=== PATIENT | female | born 1950 | race Caucasian/White ===

== ENCOUNTER → 2021-05-11 10:35 | Outpatient (CLI) | payer MEDICARE, SELFPAY ==
--- NOTE | ~2021-05-11 | DEXA_ITS ---
Bone Density Report Name: Shelby Garza Age: 70 Sex: Female Ethnicity: White Date of : 1950 Indication: postmenopausal; screening for osteoporosis; parental hip fracture; height loss; prior fracture; Referring Provider: ARIELLA, ASTHYA Study: Bone densitometry was performed. Exam Date: May 11, 2021 Accession number: [id number] Bone Density: Region BMD T-score Z-score Classification AP Spine (L2, L3, L4) 1.067 -0.1 2.2 Normal Femoral Neck (Left) 0.650 -1.8 0.1 Osteopenia Total Hip (Left) 0.936 0.0 1.5 Normal Femoral Neck (Right) 0.607 -2.2 -0.3 Osteopenia Total Hip (Right) 0.833 -0.9 0.7 Normal Total Hip Mean 0.885 -0.5 1.1 Normal World Health Organization criteria for BMD impression classify patients as: Normal (T-score at or above -1.0), Osteopenia (T-score between -1.0 and -2.5), or Osteoporosis (T-score at or below -2.5). 10-year Fracture Risk: FRAX not reported because: Prior hip or vertebral fracture Previous Exams: Region Exam Age BMD T-score BMD Change BMD Change Date g/cm2 vs Baseline vs Previous AP Spine(L2, L3, L4) 05/11/2021 70 1.067 -0.1 0.116 0.011 11/03/2018 68 1.057 -0.2 0.105 0.060* 02/28/2016 65 0.996 -0.8 0.045 -0.023 11/06/2012 62 1.019 -0.5 0.068 0.068 03/23/2003 52 0.951 -1.2 Total Hip(Left) 05/11/2021 70 0.936 0.0 0.041 -0.039* 11/03/2018 68 0.975 0.3 0.080 0.000 02/28/2016 65 0.975 0.3 0.080 -0.016 11/06/2012 62 0.992 0.4 0.096 0.096 03/23/2003 52 0.895 -0.4 Total Hip(Right) 05/11/2021 70 0.833 -0.9 -0.017 -0.057* 11/03/2018 68 0.890 -0.4 0.040 -0.059* 02/28/2016 65 0.949 0.1 0.099 0.013 11/06/2012 62 0.935 -0.1 0.086 0.086 03/23/2003 52 0.850 -0.8 *Denotes significance at 95% confidence level, LSC for AP Spine = 0.022 g/cm2, LSC for Total Hip = 0.027 g/cm2 Clinical Information Provided by Patient: Have had a previous hip or vertebral fracture Has had a low trauma fracture Parent has had a hip fracture Has used the following medications: Vitamin D Patient maximum height was 67.0 Menopause Age: 44 No regular weight bearing exercise Does not regularly consume dairy products Drinks caffeinated beverages Onset of menses at age 11 Number of children 3
--- NOTE | ~2021-05-11 | MM_ITS ---
EXAMINATION: MM screening [facility] BI w steve HISTORY: Screening mammogram TECHNIQUE: Craniocaudal and mediolateral oblique 3-D tomosynthesis images were obtained and synthetic 2-D images were generated. CAD analysis was submitted and interpreted. COMPARISON: 11/03/2018, 09/15/2017, 02/28/2016 bilateral digital screening mammogram examinations BREAST PARENCHYMAL COMPOSITION: The breasts are almost entirely fatty. FINDINGS: Stable 8 mm circumscribed benign-appearing lymph node in the upper outer right breast, not significantly changed since 02/28/2016. Stable very small circumscribed benign probable left axillary tail lymph node. There is no evidence of suspicious mass, calcification, or architectural distortion to suggest malignancy in either breast. There has been no suspicious interval change. IMPRESSION: 1. No mammographic evidence of malignancy. 2. Recommend routine screening mammography in one year. BI-RADS Category 2: Benign finding(s). Reviewed, dictated and finalized at location A.
== END ==
PROVIDERS: Visit Provider Nurse Practitioner
DX: Z12.31 Encounter for screening mammogram for malignant neoplasm of breast (principal); Z78.0 Asymptomatic menopausal state; M85.852 Other specified disorders of bone density and structure, left thigh; M85.851 Other specified disorders of bone density and structure, right thigh
CPT/HCPCS: 77063; 77067; 77080

== ENCOUNTER → 2022-07-26 09:47 | Outpatient (CLI) | payer MEDICARE, SELFPAY ==
--- NOTE | ~2022-07-26 | MM_ITS ---
EXAMINATION: MM screening [facility] BI w steve HISTORY: Screening mammogram TECHNIQUE: Craniocaudal and mediolateral oblique 3-D tomosynthesis images were obtained and synthetic 2-D images were generated. CAD analysis was submitted and interpreted. COMPARISON: 09/11/2020, 11/03/2018, 09/15/2017 BREAST PARENCHYMAL COMPOSITION: The breasts are almost entirely fatty. FINDINGS: Again noted is a stable intramammary lymph node in the upper outer quadrant of the right br east. No suspicious mass, calcification, or architectural distortion are identified in either breast to suggest malignancy. There has been no suspicious interval change. IMPRESSION: 1. No mammographic evidence of malignancy. 2. Recommend routine screening mammography in one year. BI-RADS Category 2: Benign finding(s). Reviewed, dictated and finalized at location A. NESS MGR
== END ==
PROVIDERS: PCP Family Medicine; Visit Provider Nurse Practitioner
DX: Z12.31 Encounter for screening mammogram for malignant neoplasm of breast (principal)
CPT/HCPCS: 77063; 77067

== ENCOUNTER → 2022-09-20 10:00 | Outpatient (CLI) | payer MEDICARE, SELFPAY ==
--- NOTE | ~2022-09-20 | US_ITS ---
Pelvic ultrasound. Clinical History: Incomplete uterovaginal prolapse Technique: Realtime transabdominal and transvaginal scanning of the pelvis was performed. Color flow Doppler and Doppler spectral analysis were performed. Findings: The uterus is anteverted. The endometrial stripe has a thickness of 25 mm. No focal mass i s identified. Neither ovary visualized. No other adnexal mass seen. There is no evidence of free fluid in the cul de sac. Impression: Significantly abnormally thickened endometrium given patient age. Endometrial neoplasm is considerati on. Further evaluation for endometrial carcinoma or endometrial hyperplasia is recommended. Reviewed, dictated and finalized at location . SSIONS COUNSELOR Impression: Significantly abnormally thickened endometrium given patient age. Endometrial n eoplasm is consideration. Further evaluation for endometrial carcinoma or endom etrial hyperplasia is recommended.
== END ==
PROVIDERS: PCP Family Medicine; Visit Provider Obstetrics & Gynecology Gynecology
DX: N81.2 Incomplete uterovaginal prolapse (principal)
CPT/HCPCS: 76830

== ENCOUNTER 2022-10-14 01:16 | Day surgery (SDC) | payer MEDICARE, SELFPAY ==
--- NOTE | 2022-10-04 13:45 | PC.NURSE ---
Report to the Outpatient Waiting Room, entrance under the green pavilion located off [facility], at time __0615 on date __10/14/22 . Planned Procedure Time: __814 . Time changes happen often and if your time is changed the preop area will call you the afternoon before. - You and your visitor will be asked to self-screen and do not enter if you have any COVID symptoms. - Only one visitor is requested with a max of two and NO children visitors are allowed at this time. - The patient visitor may be requested to leave or wait in car when not with patient due to distancing restrictions. - A mask is optional within the hospital at this time. Patients may have clear liquids (water, carbonated beverages, clear teas, apple juice) until 3 hours prior to surgery with a maximum of 20 ounces. - No food from midnight until time of surgery - Infants may have breast milk until 4 hours before surgery, infant formula 6 hours prior to surgery. - Children will be allowed to drink immediately following surgery. If applicable, please bring a bottle or sippy cup to assist with drinking. Juice, water, soda, and popsicles are readily available. For infants on formula, please bring formula the day of surgery. Pacifiers are allowed. Take the following medications with a SIP of water the morning of surgery: ____NONE DO NOT STOP ANY OF YOUR OTHER PRESCRIPTION MEDICATIONS PRIOR TO SURGERY ?EXCEPT THE FOLLOWING Medications to discontinue per physician __ALL VITAMINS/SUPPLEMENTS 3 DAYS PRE OP. LAST DOSE 10/10/22 Please no make-up, nail georgian, hairspray, perfume, deodorant, or body powder the day of surgery. No jewelry (including any body piercings) or valuables the day of surgery, leave them at home. Please take a shower or bath the night before, or the morning of, surgery with an antibacterial soap. Wear comfortable, loose fitting clothing. Children are encouraged to wear pajamas. - Jewelry must be removed prior to entering the operating room. Rings and piercings that are not removed may be cut off. - The hospital will not accept responsibility for valuables. - Please leave all valuables, including medications, at home the day of surgery. If you are going home after surgery, a licensed dolly driver must drive you home. - NO public transportation without another adult if you receive anesthesia. - We recommend that an adult stay with you for 24 hours following discharge. - We also recommend that you do not drive, make important decision, drink alcoholic beverages, or take any drugs that were not prescribed by your health care provider for at least 24 hours after your discharge time. For Pediatric surgeries, we recommend two adults accompany the child home. Follow any additional instructions given to you from your surgeon. If you or anyone in your household have experienced Covid symptoms in the past week, please notify your surgeon or the nurse liaison at the phone number below for possible testing. Telephone instructions given to ___PATIENT and asked if any additional questions and then verbalized understanding. Patient advised to call surgeon office or pre surgery nurse liaison [phone] if any additional questions.
[2022-10-04 13:50] VITALS: BMI 31.5
[2022-10-14 06:34] VITALS: BP 151/66; PULSE 62; RESP 16; TEMP 36.8; O2SAT 97
[2022-10-14] MEDS: ACETAMINOPHEN 500 MG TABLET 1000 MG PO (07:17)
--- NOTE | 2022-10-14 07:17 | WPDHPUPDATE1 ---
History and Physical Update Update Date/Time: 10/14/22 07:17 History and Physical has been reviewed, including an updated exam of the patient. There are NO changes in the patient's condition. Risks, benefits, and alternatives have been discussed and questions answered. Patient agrees to proceed with procedure.
--- NOTE | 2022-10-14 07:18 | P.HP_ITS ---
History of Present Illness History of Present Illness Consent: Risks, benefits, and alternatives have been discussed and questions answered. Patient agrees to proceed with procedure. Chief complaint: Thickened Endometrial Lining Narrative: Shelby Garza is a 72 year old female with pelvic ultrasound showing an endometrial thickening of 25mm. It was recommended to workup with D&C hysteroscopy. Risks of infection, bleeding, perforation, and possible pathology are reviewed. Patient voices understanding and agrees to proceed. Review of Systems Review of Systems: not repeated day of surgery; patient states no changes in status PMFSH Past Medical History Medical History (Updated 10/14/22 @ 07:20 by Brenda Marrero MD) (normal spontaneous vaginal delivery) x3 Surgical History Surgical History (Updated 10/14/22 @ 07:19 by Brenda Marrero MD) History of tonsillectomy Social History Social History Smoking status: Never smoker Living arrangements: alone Spiritual care concerns: No Meds Home Medications and Allergies Home Medications Medication Instructions Recorded Confirmed Type ascorbic acid (vitamin C) 1,000 mg 1 g PO DAILY 10/04/22 10/04/22 History capsule cholecalciferol (vitamin D3) 125 125 mcg PO DAILY 10/04/22 10/04/22 History mcg (5,000 unit) tablet omega-3 fatty acids 1,000 mg PO DAILY 10/04/22 10/04/22 History turmeric 400 mg capsule 400 mg PO DAILY 10/04/22 10/04/22 History vitamin B complex 1 cap PO DAILY 10/04/22 10/04/22 History zinc 50 mg capsule 50 mg PO DAILY 10/04/22 10/04/22 History Allergies Allergy/AdvReac Type Severity Reaction Status Date / Time No Known Allergies Allergy Verified 10/14/22 07:03 Exam Const: General: healthy appearing and alert Orientation/consciousness: patient oriented x3 Resp: Effort & Inspection: normal respiratory effort GI: GI Palp: Yes Soft to palpation, No Tenderness to palpation present (GI) and No Palpable mass present : External Female Exam: normal external appearance Speculum Exam - Vagina: normal appearance of the vagina and normal vaginal discharge Speculum Exam - Cervix: normal appearance of the cervix and Other cervical findings present ( cervix at introitus at rest) Bimanual exam- vagina & uterus: uterine size normal, consistency normal and other ( third-degree cystocele and rectocele) Bimanual Exam- Adnexa, other: normal adnexae and No adnexal tenderness Neuro: General: patient oriented x3 Assessment and Plan Assessment and plan (1) Thickened endometrium: Code(s): R93.89 - Abnormal findings on diagnostic imaging of other specified body s tructures Status: Acute Assessment and Plan: plan to proceed with D&C hysteroscopy
[2022-10-14] MEDS: LACTATED RINGERS 1,000 ML 30 ML IV CONT (07:22)
--- NOTE | 2022-10-14 07:53 | WPDANESEPPF ---
Anes - Initial Pre Proc Eval Procedure: Operation Date: 10/14/22 08:15 Proposed Procedures p Hysteroscopy, Dilation and Curettage - Brenda Marrero MD Date/Time: 10/14/22 07:53 Surgeon: Brenda Marrero MD Pre Op Diagnosis: Thickened Endometrial Lining Patient Data Age: 72 Gender: F Height: 1.69 m Weight: 88.6 kg Last Vital Signs Temp 36.8 C 10/14/22 06:34 Pulse 62 10/14/22 06:34 Resp 16 10/14/22 06:34 BP 151/66 H 10/14/22 06:34 Pulse Ox 97 10/14/22 06:34 O2 Del Method Room Air 10/14/22 06:34 Allergies Allergy/AdvReac Type Severity Reaction Status Date / Time No Known Allergies Allergy Verified 10/14/22 07:03 Home Medications Medication Instructions Recorded Confirmed Type ascorbic acid (vitamin C) 1,000 mg 1 g PO DAILY 10/04/22 10/04/22 History capsule cholecalciferol (vitamin D3) 125 125 mcg PO DAILY 10/04/22 10/04/22 History mcg (5,000 unit) tablet omega-3 fatty acids 1,000 mg PO DAILY 10/04/22 10/04/22 History turmeric 400 mg capsule 400 mg PO DAILY 10/04/22 10/04/22 History vitamin B complex 1 cap PO DAILY 10/04/22 10/04/22 History zinc 50 mg capsule 50 mg PO DAILY 10/04/22 10/04/22 History Patient hx anesthesia problems: none Family hx anesthesia problems: none Results Review: All pre-operative results and documents have been reviewed as part of the pre-operative evaluation. FORMERLY [facility], [facility] Past Medical History Medical History (Updated 10/14/22 @ 07:20 by Brenda Marrero MD) (normal spontaneous vaginal delivery) x3 Surgical History Surgical History (Updated 10/14/22 @ 07:19 by Brenda Marrero MD) History of tonsillectomy Social History Social History Smoking status: Never smoker Living arrangements: alone Spiritual care concerns: No Anes - Eval Final PreProcedure Day of Procedure 10/14/22 07:53 Patient weight: obese Heart: regular rate and rhythm Lungs: clear to auscultation Airway: Mallampati scale class II Neurological: alert and oriented Last oral intake: >/= 8 hours ASA classification: II Emergent: no Anesthetic plan: proceed Anesthesia type and monitoring: general GIVS and standard monitoring Results Review: All pre-operative results and documents have been reviewed as part of the pre-operative evaluation. Informed Consent: The patient's anesthetic plan and its attendant risks and benefits were discussed with the patient/family/POA. Questions were solicited and answers provided to the satisfaction of the patient/family/POA.
[2022-10-14] MEDS: KETOROLAC 15 MG/ML VIAL (*BKC) IV PUSH (08:33)
--- NOTE | 2022-10-14 08:35 | W.PM.PROC2 ---
Procedure Note - Detailed Date of Procedure 10/14/22 Pre-op Diagnosis Thickened Endometrial Lining Post-op Diagnosis Same Procedure Performed D&C hysteroscopy with resection of polyps Surgeon Brenda Marrero MD Anesthesia MAC and Local Findings cervix is at the introitus at rest; uterus sounds to 7cm; 2 large endometrial polyps; remainder of endometrium appears atrophic Description of Procedure The patient is taken to the operating room and placed under anesthesia in the dorsal lithotomy position. She was prepped and draped in the usual sterile fashion. The cervix is at the introitus therefore it is grasped with a tenaculum and injected with 1% lidocaine. The os Finders were used into the internal os. The uterus was noted to be retroverted. The uterus is then sounded to 7cm. The hysteroscope was placed with the above-stated findings. The Aveeta resection device is placed and under direct visualization the polyps are removed in their entirety. The hysteroscope was removed and the small sharp curette used to curette the endometrium until a good uterine cry was noted in all areas. Minimal material is obtained consistent with the atrophic appearance. The patient is taken down from lithotomy position and awakened from anesthesia and taken to recovery in stable condition. Sponge, needle, and instrument counts are correct per the OR staff. Estimated Blood Loss 5 Drains No Packing No Pathology Yes ( Endometrial shavings and curettings) Complications No immediate complications Condition Stable Disposition PACU
[2022-10-14] MEDS: LIDOCAINE HCL 1% LOCAL INJ 20 ML VIAL 10 ML INFILTRATE (08:36)
[2022-10-14 08:38] VITALS: BP 116/57; PULSE 66; RESP 16; O2SAT 96
[2022-10-14 09:00] VITALS: BP 127/59; PULSE 68; RESP 16; O2SAT 100
[2022-10-14 09:30] VITALS: BP 113/70; PULSE 53; RESP 14
== END 2022-10-14 09:45 | disposition home or self-care (01) ==
PROVIDERS: PCP Family Medicine; Visit Provider Obstetrics & Gynecology Gynecology
PROC: 0U5B8ZZ Destruction of Endometrium, Via Natural or Artificial Opening Endoscopic (ICD-10-PCS; CPT 58563; principal; 2022-10-14 08:15)
DX: N84.0 Polyp of corpus uteri (principal); E66.9 Obesity, unspecified; Z68.31 Body mass index [BMI] 31.0-31.9, adult
CPT/HCPCS: 58558; 88305; A9270; J1100; J1885; J2250; J2405; J2704; J3010; J7120

== ENCOUNTER 2024-02-02 13:36 | Outpatient (CLI) | payer MEDICARE, SELFPAY ==
--- NOTE | ~2024-02-02 | DEXA_ITS ---
Bone Density Report Name: BEVERLY HERNANDEZ Age: 73 Sex: Female Ethnicity: White Date of : 1950 Indication: postmenopausal; screening for osteoporosis; parental hip fracture; prior fracture; hysterectomy; Referring Provider: DELMI, STEPHANIE Study: Bone densitometry was performed. Exam Date: February 02, 2024 Accession number: [id number] Bone Density: Region BMD T-score Z-score Classification AP Spine(L1-L4) 1.052 0.0 2.4 Normal Femoral Neck (Left) 0.598 -2.3 -0.2 Osteopenia Total Hip (Left) 0.875 -0.6 1.2 Normal Femoral Neck (Right) 0.601 -2.2 -0.2 Osteopenia Total Hip (Right) 0.867 -0.6 1.1 Normal Total Hip Mean 0.871 -0.6 1.2 Normal World Health Organization criteria for BMD impression classify patients as: Normal (T-score at or above -1.0), Osteopenia (T-score between -1.0 and -2.5), or Osteoporosis (T-score at or below -2.5). 10-year Fracture Risk: FRAX not reported because: Prior hip or vertebral fracture Treated for osteoporosis Clinical Information Provided by Patient: Have had a previous hip or vertebral fracture Has had a low trauma fracture Parent has had a hip fracture Is being treated for osteoporosis Has used the following medications: Vitamin D Has the following medical conditions: Hysterectomy Patient maximum height was 56.75 Menopause Age: 43 No regular weight bearing exercise Does not regularly consume dairy products Drinks caffeinated beverages Onset of menses at age 11 Number of children 3 Impression: The patient has low bone mass, based on the Left Femoral Neck T-score. The patient has risk factors, including: parental hip fracture, previous fracture. Discussion: It is important to ask patients whether they are taking their medications and to encourage continued and appropriate compliance with their osteoporosis therapies to reduce fracture risk. It is also important to review their risk factors and encourage appropriate calcium and vitamin D intakes, exercise, fall prevention and other lifestyle measures. Follow-Up: Consider a repeat BMD and Vertebral Fracture Assessment (VFA) exam in 2 years or sooner if medically necessary, to reassess this patient's status. Reported by: ALBA on 02/02/2024 2:19:00 PM. Reviewed, dictated and finalized at location AMadiha COLLADO
== END 2024-02-02 13:37 | disposition home or self-care (01) ==
PROVIDERS: Visit Provider Nurse Practitioner Women's Health
DX: M85.88 Other specified disorders of bone density and structure, other site (principal); Z78.0 Asymptomatic menopausal state; M85.852 Other specified disorders of bone density and structure, left thigh; M85.851 Other specified disorders of bone density and structure, right thigh
CPT/HCPCS: 77080

== ENCOUNTER 2024-02-11 10:41 | Outpatient (CLI) | payer MEDICARE, SELFPAY ==
--- NOTE | ~2024-02-11 | MM_ITS ---
EXAMINATION: MM screening [facility] BI w steve HISTORY: Screening TECHNIQUE: Craniocaudal and mediolateral oblique 3-D tomosynthesis images were obtained and synthetic 2-D images were generated. CAD analysis was submitted and interpreted. COMPARISON: Comparison to multiple prior studies sequentially, with oldest reviewed study dated 12/2022. BREAST PARENCHYMAL COMPOSITION: Not dense: There are scattered areas of fibroglandular density. FINDINGS: There is no evidence of suspicious mass, calcification, or architectural distortion to sugg est malignancy in either breast. There has been no suspicious interval change. IMPRESSION: 1. No mammographic evidence of malignancy. 2. Recommend routine screening mammography in one year. BI-RADS Category 1: Negative Reviewed, dictated and finalized at location B.
== END 2024-02-11 10:42 ==
LOC: MICIMG 10:43
PROVIDERS: PCP Nurse Practitioner; Visit Provider Nurse Practitioner
DX: Z12.31 Encounter for screening mammogram for malignant neoplasm of breast (principal)
CPT/HCPCS: 77063; 77067

== ENCOUNTER 2025-05-04 10:36 | Outpatient (CLI) | payer MEDICARE, SELFPAY ==
--- NOTE | ~2025-05-04 | MM_ITS ---
EXAMINATION: MM screening [facility] BI w steve HISTORY: Screening TECHNIQUE: Craniocaudal and mediolateral oblique 3-D tomosynthesis images were obtained and synthetic 2-D images were generated. CAD analysis was submitted and interpreted. COMPARISON: 07/26/2022 BREAST PARENCHYMAL COMPOSITION: Not Dense: The breasts are almost entirely fatty. FINDINGS: There is no evidence of suspicious mass, calcification, or architectural distortion to suggest malignancy. There has been no suspicious interval change. IMPRESSION: 1. No mammographic evidence of malignancy. Recommend routine screening mammography in one year. BI-RADS Category 2: Benign finding(s) Reviewed, dictated and finalized at location Q. IMPRESSION: 1. No mammographic evidence of malignancy. Recommend routine screening mammogra phy in one year. BI-RADS Category 2: Benign finding(s)
== END 2025-05-04 10:37 | disposition home or self-care (01) ==
LOC: MICIMG 10:37
PROVIDERS: PCP Family Medicine; Visit Provider Family Medicine
DX: Z12.31 Encounter for screening mammogram for malignant neoplasm of breast (principal)
CPT/HCPCS: 77063; 77067